=== PATIENT | male | born 1960 | race Caucasian/White ===

== ENCOUNTER → 2018-07-06 | Day surgery (SDC) | payer OTHER ==
[~2018-07-06] MED LIST: ATORVASTATIN CA20 MG PO; DEXAMETHASONE SOD PHOS INJ 4 MG/ML VIAL ONE; FENTANYL CITRATE/PF 100MCG/2 ML INJ ONE; LEVOFLOXACIN 500MG/D5W 100ML 100 ML IV ONE; LIDOCAINE HCL 2% LOCAL INJ 5 ML SDV VIAL INJ ONE; LOSARTAN-HCTZ1 EACH PO; MIDAZOLAM HCL 2 MG/2 ML VIAL ONE; ONDANSETRON HCL INJ 2 MG/ML VIAL ONE; PROPOFOL IV EMULSION 10 MG/ML 20 ML VIAL ONE; SEVOFLURANE INHAL SOLN 250 ML PEN BTL ONE
[2018-07-06 13:54] VITALS: BP 126/67
--- NOTE | 2018-07-06 14:16 | Operative Report ---
DATE OF PROCEDURE: July 06, 2018 PREOPERATIVE DIAGNOSES 1. Benign prostatic hypertrophy. 2. Prostatic obstruction. 3. [employer] score 29. POSTOPERATIVE DIAGNOSES 1. Benign prostatic hypertrophy. 2. Prostatic obstruction. 3. [employer] score 29. OPERATIONS PERFORMED: Cystourethroscopy and bilateral retrograde pyelogram. PROOF CARRIER: HERSON Cowan. ANESTHETIC: General. Mr. Johansen is a 57-year-old male who presented with a chief complaint of lower urinary tract obstructive symptoms. Rectal exam showed an enlarged prostate gland about 40 to 50 g and firm and benign. His PSA was normal. His AUA score was 29. This patient was placed on the table in the lithotomy position and was prepped and draped in a sterile manner after satisfactory anesthesia. A number 23-Australian cystourethroscope was used, and cystourethroscopy was performed and it was noted that the urethra was normal. The prostatic urethra was about 3 to 3.5 cm long, bilobar and occlusive. Cystoscopy was then performed using both right-angle and the Foroblique lens, and it was noted that the bladder mucosa was normal with no evidence of gross tumor, pathology or any papillary lesions. The bladder wall was moderately trabeculated. A right retrograde pyelogram was then performed using a number 8 ball-tip urethral catheter inserted at the right ureteral orifice, and 5 mL of contrast material was injected. The retrograde performed was normal. A left retrograde pyelogram was performed similarly and was normal. The bladder was drained, cystoscope removed, and patient taken to the recovery room in satisfactory condition. Plans for this patient are to be placed on Cipro 250 mg 1 twice a day for 5 days. Ultracet tablet 1 every 6 to 8 hours p.r.n. and was given 50. He is to return to the office in 1 week, when at that time plans will be made to discuss all other options. Job#: [id number]
== END | disposition home or self-care (01) ==
LOC: OR 09:18
PROVIDERS: ATTEND Specialist
DX: N40.1 Benign prostatic hyperplasia with lower urinary tract symptoms (principal); N13.8 Other obstructive and reflux uropathy; I10 Essential (primary) hypertension; E78.5 Hyperlipidemia, unspecified; E11.9 Type 2 diabetes mellitus without complications
CPT/HCPCS: 52005; 74420; C1758; J1100; J1956; J2001; J2250; J2405